=== PATIENT | female | born 2000 | race Caucasian/White ===

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

== ENCOUNTER 2024-07-18 19:15 | Emergency (ER) | payer OTHER ==
[~2024-07-18] VITALS: Ht 160 cm; Wt 100.1 kg
[2024-07-18 19:19] VITALS: BP 145/99; TEMP 98.8; O2SAT 97
== END 2024-07-18 19:24 | disposition admitted as inpatient to this hospital (09) ==
LOC: M ED 19:15
DX: Z53.21 Procedure and treatment not carried out due to patient leaving prior to being seen by health care provider (principal)

== ENCOUNTER 2024-07-18 19:29 | Outpatient (CLI) | payer OTHER ==
[~2024-07-18] VITALS: Ht 160 cm; Wt 100.5 kg
[2024-07-18 20:31] VITALS: BP 131/75
== END 2024-07-18 20:20 | disposition home or self-care (01) ==
LOC: M LDO 19:29
PROVIDERS: ATTEND Specialist
DX: Z04.1 Encounter for examination and observation following transport accident (principal); Y92.9 Unspecified place or not applicable; Y93.9 Activity, unspecified; Y99.9 Unspecified external cause status; Z3A.37 37 weeks gestation of pregnancy
CPT/HCPCS: 59025; G0463